=== PATIENT | female | born 1945 | race Caucasian/White ===

== ENCOUNTER 2016-12-15 07:17 | Day surgery (SDC) | payer BC, OTHER ==
[2016-12-13 12:08] VITALS: BMI 38.0
[2016-12-15] MEDS ORDERED: PROPOFOL 20 ML ONE ×2 (07:22)
[2016-12-15 10:26] VITALS: BP 135/75; PULSE 64; TEMP 98.2
== END 2016-12-15 09:45 | disposition home or self-care (01) ==
LOC: FASU-ENDO 07:17
PROVIDERS: ATTEND Internal Medicine Gastroenterology
PROC: 0DJD8ZZ Inspection of Lower Intestinal Tract, Via Natural or Artificial Opening Endoscopic (ICD-10-PCS; principal; 2016-12-15 08:23)
DX: Z12.11 Encounter for screening for malignant neoplasm of colon (principal); Z83.71 Family history of colonic polyps; K57.30 Diverticulosis of large intestine without perforation or abscess without bleeding